=== PATIENT | female | born 1975 | race Caucasian/White ===

== ENCOUNTER → 2018-08-18 | Outpatient (CLI) | payer OTHER ==
[~2018-08-18] VITALS: Ht 170.2 cm; Wt 125.9 kg
[~2018-08-18] MED LIST: ANTACID500 MG PO; ATENOLOL 25MG T25 M1 PO; CELEBREX 200 M200 M1 PO; HYDROCODON-ACE1 EAC7 PO; IBUPROFEN 600600 M1 PO; SERTRALINE HCL25 M1 PO; TUMS PO; ZOLOFT25 MG PO
--- NOTE | ~2018-08-18 | HPC ---
[facility] [address] [address] PAIN MANAGEMENT CONSULTATION Name: BEV HALEY Room #: REG WILLIAM Brothers.#: [id number] Admission: 08/18/18 Attend Phys: Gian Castañeda MD Discharge: Date of : 73 Report #: [id number] THIS REPORT FOR: //name// CC: Se Castañeda DATE OF SERVICE: 08/18/2018 PRIMARY CARE PHYSICIAN: Se Milligan M.D. CHIEF COMPLAINT: Chronic pain. HISTORY OF PRESENT ILLNESS: The patient is a 42-year-old who is here today complaining of "all over joint pain". With further questioning, she breaks this down into different areas of the body, including her neck, low back, burning pain in her shoulder with some radiation into the left arm, pain in her left knee and tenderness bilaterally in the thumbs. She has had ongoing pain for over 5 years. She describes her pain as steady, burning, shooting and cramping and her average daily pain intensity is 5/10. She has seen numerous practitioners and has been evaluated by Dr. Roberto Walton, the neurosurgeon. No surgery is currently contemplated or scheduled. Functionally, she remains engaged. 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 She has not taken extensive time off of her job because of her chronic pain, which is laudable. She is , but has a supportive 22-year-old daughter and other family in the community. She sounds as though she has a good social network. She does not exercise on a regular basis and is aware that her weight contributes greatly to her ongoing pain. Her current weight is 277 pounds with a BMI in excess of 40. She has contemplated weight loss surgery. Her physical pain is made worse with prolonged sitting, prolonged lying and extensive walking. She reports that it does not ever go away and she does not have a regular pain medication. In the past, she has tried anti-inflammatory drugs and antidepressants, but does not like to take pills. She has used hydrocodone 1-2 tablets per day maximum. She does not take it on a regular basis. She was given 60 tablets recently by her primary care physician. The prescription drug monitoring program shows her last prescription filled on 05/16/2018 for [address] Riddle, who is no longer practicing in the area. She denies a history of misuse or abuse of opioid medications. No history of drug abuse and her ORT score is . [address] [address] PAIN MANAGEMENT CONSULTATION Name: BEV HALEY Room #: REG WILILAM Patel#: [id number] Admission: 08/18/18 Attend Phys: Gian Castañeda MD Discharge: Date of : 73 Report #: [id number] MEDICATIONS: Current medicines taken on a regular basis are atenolol 25 mg and Zoloft 50 mg daily. ALLERGIES: METFORMIN. PAST MEDICAL HISTORY: Fatty liver disease; history of panic, anxiety disorder and chronic mild depression and diffuse joint pain described as arthritis. In 1983 and 1984, she had surgery for slipped growth plate, which was treated with a surgical pin and then removed. She had a hysterectomy in 2002, bladder sling in 2014 and a left knee total knee replacement at [facility], also in 2014. REVIEW OF SYSTEMS: Positive for slight weight loss, fatigue, weakness, chronic headaches, occasional chest pains, intermittent painful bowel movements, constipation, hemorrhoidal bleeding, nocturia, nervousness, depression and anxiety. PHYSICAL EXAMINATION: GENERAL: Pleasant, straightforward 42-year-old, mildly depressed affect. VITAL SIGNS: Blood pressure 149/85, heart rate 85. BMI 43. CHEST: Clear. CARDIAC: Rhythm regular. No audible murmur. ABDOMEN: Soft. SKELETAL EXAMINATION: Demonstrates good range of motion of the cervical spine with myofascial tender points throughout the neck and upper back. Low back pain is noted with tenderness across the lumbosacral segment. Pain is also noted in multiple joints with tenderness primarily in the metacarpophalangeal joint of the thumb bilaterally. Pain in both hips and some pain remaining around the left knee. She has myofascial tender points in multiple locations. She complains of tingling and numbness in her left arm. She has some mild straight leg raising discomfort, consistent with radiculopathy. DIAGNOSTIC DATA: X-rays, MRI of cervical spine shows degenerative posterior disk osteophyte complex and hypertrophy, resulting in severe left paracentral canal narrowing with flattening of the left ventral aspect of the cervical cord; [id number] bilateral foraminal narrowing. At C5-C6, there is a degenerative posterior disk osteophyte complex, also causing slight flattening of the central ventral aspect of the cord with foraminal narrowing. There are no other x-rays available. IMPRESSION: 1. Chronic pain with multiple pain generators, including diffuse osteoarthritis, status post left total knee replacement, cervical spondylosis and central stenosis at C4-C5 and C5-C6. In addition, she has chronic low back pain. 2. Morbid obesity. [facility] [address] [place] [address] PAIN MANAGEMENT CONSULTATION Name: BEV HALEY Room #: REG [facility]#: [id number] Admission: 08/18/18 Attend Phys: Gian Castañeda MD Discharge: Date of : 73 Report #: [id number] 3. Mild chronic depression and anxiety. 4. Fatty liver disease. RECOMMENDATIONS: 1. A good portion of our visit was spent discussing wellness behaviors and movement programs, physical therapy. She reports that she swims on a regular basis. If she is able to do that, that would be excellent. However, it is perhaps the most challenging of exercises, laden with heavy burdens of travel and changing from closed suit back again. Most people find this very difficult to sustain while working full-time. We talked about other forms of exercise that are more acceptable to her, such as non-impact weightbearing exercises she can do at home during the winter including walking program. Movement is the most critical aspect for chronic pain of this sort. 2. Weight loss is a challenge for her and this has been a lifelong struggle. We talked about her upcoming appointment with Dr. Longo and she seems well motivated. This could be very helpful for her, and I think it would also allow her to approach her pain more effectively. 3. We discussed medication management. While she denies wanting to take medication, she does find some relief from hydrocodone at low dose and I am not opposed to this. Two hydrocodone 5/325 tablets equate to 10 morphine milligram equivalents. If she uses this properly, it can improve her mobility and her activity, which is the primary goal of these medicines. I am willing to provide the medications for her under terms of written opioid agreement and we have discussed at some length the opioid crisis in the [place] and the use of opioids in the treatment of chronic intractable pain. Prescription was provided for her today for 60 tablets and we will follow up. I have also suggested that she try an anti-inflammatory drug and after much discussion, we decided on celecoxib 200 mg, the generic form which is more affordable, one tablet daily and we discussed side effects and risks of this medication as well before providing the prescription. Plan to see her back in 1 month to evaluate medication and also to reinforce some of the wellness goals established. If we could find affordable and reasonable counseling for her, I think that this would be of great value. Certainly challenges exist in this regard for secondary providers of in Mental Health. By: [id number] Gian Castañeda MD /nt
[2018-08-18 12:51] VITALS: BP 149/85
== END ==
LOC: PAIN 07-21 07:14
DX: M47.812 Spondylosis without myelopathy or radiculopathy, cervical region (principal); M48.02 Spinal stenosis, cervical region; E66.01 Morbid (severe) obesity due to excess calories; F32.9 Major depressive disorder, single episode, unspecified; F41.9 Anxiety disorder, unspecified; K76.0 Fatty (change of) liver, not elsewhere classified; Z96.652 Presence of left artificial knee joint; Z79.899 Other long term (current) drug therapy

== ENCOUNTER → 2019-01-29 | Outpatient (CLI) | payer OTHER ==
[~2019-01-29] VITALS: Ht 170.2 cm; Wt 129.7 kg
[~2019-01-29] MED LIST changes: +TYLENOL EXTRA500 MG PO; +ZOLOFT50 MG PO
[2019-01-29 10:15] VITALS: BP 140/90
--- NOTE | 2019-01-29 10:29 | NUR ---
Pain Clinic Assessment: 1. History of Osteoarthritis: LEFT KNEE BILAT HIPS RIGHT FOOT History of Rheumatoid Arthritis: Not Applicable 2. Height: 5 ft. 7 in. 170.2 cm. Weight: 286.0 lb. oz. 129.729 kg. Patient's BMI: 44.8 3. Vital Signs: BP: 140/90 Pulse: 77 Resp: 16 Temp: 02 Sat: 100 ECG Mon: 4. Pain Intensity: 4 5. Fall Risk: Dizziness: N Needs help standing or walking: N Fallen in the last 3 months: N Fall risk comments: 6. Patient on Blood Thinner: None 7. History of Hypertension: N 8. Opioid Therapy greater than 6 weeks: Y Opiate Contract Signed: 08/18/19 9. Risk Assessment Tool Provided: 1-LOW 10. Functional Assessment Tool: 11. Recreational Drug Use: Never Drug Type: Tobacco Use: Former Smoker Tobacco Type: Amount or Packs/day: How Many Years: Alcohol Use: Yes Frequency: Special Occasions Quant:
--- NOTE | 2019-02-03 07:40 | HPC ---
[facility] [address] [address] PAIN MANAGEMENT CONSULTATION Name: SUDHABEV J Room #: REG WILLIAM Patel#: [id number] Admission: 01/29/19 ������������������ Attend Phys: Marie Guevara Discharge: ������������������ Date of : 73 Report #: [id number] THIS REPORT FOR: //name// CC: Marie Milligan DATE OF SERVICE: 01/29/2019 CHIEF COMPLAINT: Chronic neck and back pain. HISTORY OF PRESENT ILLNESS: This is a pleasant 43-year-old female who returns to the pain clinic today for a refill of her medications. She tells me that she has pain all over, but most significantly in her neck and lower back as well as her knees. She tells me it is a tingly burning, shooting, cramping pain. She rates her pain score 4/10 that increases when she is sitting too long in her mid back or lying down or walking aggravates her knees. She said that her pain medicine is helpful in controlling her pain as well as repositioning herself. The patient tells me that she is getting ready to have a bariatric procedure done sometime in the next month and then hopefully, she will have her left knee replaced by [facility] later this fall. She tells me that she has a followup next week and hopefully, she will have her surgery date scheduled. The patient tells me that she takes her pain medicine not daily. She does take some Tylenol and then when she is having increased pain, she will take her hydrocodone. She had an issue filling her Celebrex, so that was never filled. She takes Tylenol instead of this medicine. ALLERGIES: CIPRO AND METFORMIN. CURRENT MEDICATIONS: Tylenol Extra Strength about four tablets a day, Zoloft 50 mg at bedtime, hydrocodone 5/325 p.r.n., calcium p.r.n. and atenolol 25 mg at bedtime. PQRS: 1. The patient has a history of osteoarthritis in her left knee, her hips and her lower back as well as her neck. She denies any rheumatoid arthritis. 2. Height is 5 feet 7 inches, weight is 286, BMI is 44. 3. Vital signs: Blood pressure 140/90, pulse is 77, respirations 16, oxygen sat is 100. Pain score is 4/10. 4. Fall risk: Denies dizziness. Does not need help walking or standing, has not fallen in the last three months. The patient is not on any blood thinners, is not on any medicine for hypertension. 5. Opioid therapy is greater than six weeks. She does have an opioid signed contract on the chart. Her risk assessment tool is low. Her functional assessment is 49/70. [address] [address] PAIN MANAGEMENT CONSULTATION Name: BEV HALEY Room #: REG WILLIAM Patel#: [id number] Admission: 01/29/19 ������������������ Attend Phys: Marie Guevara Discharge: ������������������ Date of : 73 Report #: [id number] 6. Recreational drug use: She denies. She is a former smoker and occasionally drinks alcohol. We did check the prescription monitoring system. The patient filled appropriately for her medication that we have given her in August and has not filled any medications since then. PHYSICAL EXAMINATION: GENERAL: This is a very pleasant 43-year-old female who appears her stated age, slightly obese. She is alert and orientated. HEENT: Normocephalic, atraumatic. Extraocular eye muscles are intact. Mucous membranes are moist. MUSCULOSKELETAL: Good range of motion of the cervical spine. Does complain of some myofascial points in her upper neck that causes headaches occasionally in the occipital area, low back pain in the lumbosacral area with some tenderness as well. She does complain of some left knee pain today as well as some bilateral hip pain. She has a slightly antalgic walk. The patient also complains of tingling and numbness in her left arm. IMPRESSION: 1. Chronic pain with multiple pain generators including diffuse osteoarthritis. 2. Spondylosis. 3. Cervical stenosis at C4-C5, C5-C6. 4. Chronic low back pain. 5. Morbid obesity. 6. Mild chronic depression and anxiety. We reviewed the fact that opiate medications are being used to provide analgesia adequate to support activities of daily living, not attempting to achieve a specific pain score on the 0-10 Visual Analog Scale. The current opiate medications are providing sufficient analgesia to allow the patient to participate in activities of daily living. The patient is not exhibiting any aberrant behavior suggestive of drug diversion. The patient is not having any adverse reactions to medications. The patient is not suffering from daytime somnolence or mental acuity changes. The patient is managing opiate-induced constipation with appropriate hnyx-rfe-idmbohs agents and dietary considerations. The patient was counseled on concern for caution with operating a motor vehicle while using opiate medications. A physical exam was performed and the patient's functional status was evaluated. All patients with back pain were advised against the bed rest greater than 4 days and were advised to return to normal activities. Pain score assessment was noted and the treatment plan was reviewed with the patient. All current medications, both prescribed and OTC were reviewed and reconciled on the electronic medical record. Tobacco screening was accomplished and smoking cessation was advised when indicated. BMI was noted and diet/exercise modification was recommended for all patients following outside normal parameters. [facility] [address] [place] [address] PAIN MANAGEMENT CONSULTATION Name: BEV HALEY Room #: REG WILLIAM Patel#: [id number] Admission: 01/29/19 ������������������ Attend Phys: Marie ANDREE Watsonbenito Discharge: ������������������ Date of : 73 Report #: [id number] I reviewed with the patient today their responsibilities to safeguard prescription medications, reviewed their responsibility to utilize medications only as prescribed by the physician. They are to seek and receive pain medications only from 1 physician group ( [facility]). They are to use 1 pharmacy and keep the clinic informed if they change pharmacies. Their responsibilities include making followup visits in a timely fashion and to avoid abrupt discontinuation of medication usage. Their responsibilities further include bringing their medications (bottles from the pharmacy with residual pills) to the visit for possible confirmation of pill counts and the patient understands it is their responsibility to submit to random drug screens to ensure both that the medications prescribed are present, and that no other controlled substances are present. All prescriptions provided today were generated electronically. PLAN: 1. We discussed treatment options with the patient today. The patient tells me she has been trying to decrease her weight since last seen. She is not having much luck. She finds that activity makes her pain worse as far as walking. She has lost a few pounds and is scheduled for a bariatric surgery soon. She tells me when she has increased activity that increases her pain in her left knee, which she needs to have replaced, therefore that is why she is having the bariatric surgery with Dr. Longo. 2. The patient tells me that she controls her pain with about four Tylenol a day and one hydrocodone when her pain is at the worst. She tries to control it with Tylenol if she is able to, but the hydrocodone is very effective when her neck causes headaches or her back goes into spasms that radiates into her lower back and her hips. 3. Script was given today for hydrocodone 5/325, #60 with no additional refills. The patient will take these sparingly as she has continued. We did talk about her need for possibly increasing them right after her bariatric surgery, so she may need to follow up with us sooner than six months at this time. 4. We did also talk about when she does need to have her knee replacement, we will discuss a plan of care for her pain control prior to that surgery and encouraged to make an appointment prior to that in the fall. 5. The patient was unable to fill her Celebrex due to the cost of greater than $90. We did not get any information from the pharmacy regarding her prior auth, so she has not been taking that, which we discussed that possibly Dr. Longo would not want her to take that prior to her gastric surgery anyway. She controls her pain as stated above with the hydrocodone and Tylenol. [address] [address] PAIN MANAGEMENT CONSULTATION Name: BEV HALEY Room #: REG WILLIAM Patel#: [id number] Admission: 01/29/19 ������������������ Attend Phys: Marie Guevara Discharge: ������������������ Date of : 73 Report #: [id number] Gian Castañeda did see the patient today in collaborative care. The patient will call for an appointment as needed. ��������������������������������������������� <ELECTRONICALLY SIGNED> ���������������������������������������� By: Marie Guevara ��������������������������������������������� 02/03/19 0740 [id number] 2049 Marie Guevara /nt
== END ==
LOC: PAIN 06:55
DX: M47.812 Spondylosis without myelopathy or radiculopathy, cervical region (principal); M48.02 Spinal stenosis, cervical region; M19.90 Unspecified osteoarthritis, unspecified site; G89.29 Other chronic pain; E66.01 Morbid (severe) obesity due to excess calories; F32.9 Major depressive disorder, single episode, unspecified; F41.9 Anxiety disorder, unspecified; Z88.8 Allergy status to other drugs, medicaments and biological substances